=== PATIENT | female | born 1940 ===

== ENCOUNTER 2022-01-27 18:22 | Inpatient (IN) | payer OTHER ==
[~2022-01-27] VITALS: Ht 152.4 cm; Wt 90.7 kg
[2022-01-27] MEDS ORDERED: ALPRAZOLAM ODT0.5 MG (18:31)
[2022-01-27] MEDS ORDERED: CHILD MUCINEX (18:32)
[2022-01-27] MEDS ORDERED: KAPVAY0.1 MG (18:32)
[2022-01-27] MEDS ORDERED: VITAMIN C100 MG (18:32)
[2022-01-27] MEDS ORDERED: ESTAZOLAM1 MG (18:33)
[2022-01-27] MEDS ORDERED: ARICEPT5 MG (18:33)
[2022-01-27] MEDS ORDERED: ZESTRIL5 MG (18:33)
[2022-01-27] MEDS ORDERED: ALLER-EASE60 MG (18:33)
[2022-01-27] MEDS ORDERED: SINGULAIR4 M1 (18:33)
[2022-01-27] MEDS ORDERED: LODOSYN25 MG (18:33)
== END 2022-02-04 19:39 | disposition home or self-care (01) | DRG 689 ==
LOC: ER 18:22 → MEDJ 21:03
PROVIDERS: ADMIT Internal Medicine; ATTEND Internal Medicine
PROC: BW21ZZZ Computerized Tomography (CT Scan) of Abdomen and Pelvis (ICD-10-PCS; principal; 2022-01-27)
PROC: 02HV33Z Insertion of Infusion Device into Superior Vena Cava, Percutaneous Approach (ICD-10-PCS; 2022-01-29)
DX: N39.0 Urinary tract infection, site not specified (principal); U07.1 COVID-19; B96.89 Other specified bacterial agents as the cause of diseases classified elsewhere; R31.9 Hematuria, unspecified; D72.828 Other elevated white blood cell count; Z74.01 Bed confinement status; I10 Essential (primary) hypertension; G30.8 Other Alzheimer's disease; F02.80 Dementia in other diseases classified elsewhere, unspecified severity, without behavioral disturbance, psychotic disturbance, mood disturbance, and anxiety; R41.82 Altered mental status, unspecified; G20 Parkinson's disease

== ENCOUNTER 2022-03-02 18:52 | Inpatient (IN) | payer OTHER ==
[~2022-03-02] VITALS: Ht 121.9 cm; Wt 81.6 kg
[~2022-03-02 18:52] MED LIST: ALLER-EASE60 MG; ALPRAZOLAM ODT0.5 MG; ARICEPT5 MG; CHILD MUCINEX; ESTAZOLAM1 MG; KAPVAY0.1 MG; LODOSYN25 MG; SINGULAIR4 M1; VITAMIN C100 MG; ZESTRIL5 MG
--- NOTE | 2022-03-02 19:03 | NUR ---
PACIENTE QUE FUE DADO DE HEIDY HOY DEL PISO DE MEDICINA REFIERE REGRESAR DEL HOGAR POR FIEBRE Y HEMATURIA.
--- NOTE | 2022-03-02 19:06 | NUR ---
PACIENTE QUE LLEGA EN COMPANIA DE PERSONAL DE EMERGENCIAS MEDICAS Y FAMILIAR DESDE UN HOGAR DE ANCIANOS POR FIEBRE Y HEMATURIA.
--- NOTE | 2022-03-02 19:50 | NUR ---
TX. OFRECIDO POR MIS. VALENCIA QUIEN ORIENTA AL PACIENTE SOBRE EL [place]. EXTRAE MUESTRAS DE [place] BAJO MEDIDAS ASEPTICAS, ROTULA Y ENVIA AL LABORATORIO. CANALIZA Y ADMINISTRA MEDICAMENTO GRACE ORDEN MEDICA.
--- NOTE | 2022-03-02 21:55 | NUR ---
SE INSERTA RIVAS CATETER BAJO MEDIDAS ESTERILES, DRENANDO UA ABUNDANTE AMARILLO INTENSO, CON SEDIMIENTOS
--- NOTE | 2022-03-03 07:09 | NUR ---
SE RECIBE PACIENTE FEMENINA DORMIDA LA CUAL SE OBSERVA CANALIZADA PATENTE, LIMPIA Y SECA, IVF 0.9 NSS AT 100ML/HR Y RIVAS CON ORINA COLOR AMARILLA YINA. PACIENTE CONSULTADA CON DR COHEN. SE MATIENE PACIENTE EN OBSERVACION.
[2022-03-03] MEDS ORDERED: NIFEDIPINE ER30 M1 (13:18)
[2022-03-03] MEDS ORDERED: SPIRONOLACTONE25 MG (13:18)
[2022-03-03] MEDS ORDERED: SERTRALINE HCL50 MG (13:18)
[2022-03-03] MEDS ORDERED: OMEPRAZOLE20 MG (13:18)
== END 2022-03-20 11:28 | disposition home or self-care (01) | DRG 689 ==
LOC: ER 18:52 → MEDI 03-03 10:19 → MEDJ 03-03 10:19 → SEC-K 03-03 11:21 → MEDI 03-03 13:10 → MEDJ 03-07 16:45
PROVIDERS: ADMIT Internal Medicine; ATTEND Internal Medicine
DX: N39.0 Urinary tract infection, site not specified (principal); A41.9 Sepsis, unspecified organism; Z16.12 Extended spectrum beta lactamase (ESBL) resistance; B96.20 Unspecified Escherichia coli [E. coli] as the cause of diseases classified elsewhere; R31.9 Hematuria, unspecified; Z74.01 Bed confinement status; I10 Essential (primary) hypertension; Z20.822 Contact with and (suspected) exposure to COVID-19; K29.60 Other gastritis without bleeding; F03.90 Unspecified dementia, unspecified severity, without behavioral disturbance, psychotic disturbance, mood disturbance, and anxiety